=== PATIENT | female | born 1960 | race Hispanic/Latino ===

== ENCOUNTER 2021-08-23 11:36 | Outpatient (CLI) | payer OTHER, SELFPAY ==
--- NOTE | 2021-08-23 12:32 | ECG_ITS ---
Measurements Intervals [place] Rate: 59 P: 9 TN: 145 QRS: -57 QRSD: 121 T: 34 QT: 376 QTc: 375 Interpretive Statements SINUS BRADYCARDIA POSSIBLE RIGHT VENTRICULAR CONDUCTION DELAY [RSR (QR) IN V1/V2] LEFT ANTERIOR FASCICULAR BLOCK [QRS AXIS <= -45, QR IN I, RS IN II] POSSIBLE ANTERIOR MYOCARDIAL INFARCTION [30 ms Q WAVE IN V3/V4, OR R < 0.2 mV IN V4], PROBABLY OLD ABNORMAL ECG NO PREVIOUS ECG AVAILABLE FOR COMPARISON Electronically Signed On 08-23-2021 18:06:23 CDT by Ric Silvestre M.D.
[2021-08-23 13:21] LABS: Basophils Absolute Auto 0.1 K/mm3 (0.0-0.1); Basophils Percent Auto 0.8 % (0.2-1.2); Eosinophils Absolute Auto 0.3 K/mm3 (0-0.3); Eosinophils Percent Auto 3.3 % (0-4.4); Hematocrit 45.2 % (37.0-47.0); Hemoglobin 14.6 g/dL (12.0-15.0); Immature Granulocyte Absolute 0.03 K/mm3 (0.00-0.031); Immature Granulocyte Percent A 0.4 % (0-0.5); Lymphocytes Percent Auto 31.9 % (18.3-44.2); Mean Corpuscular HGB Conc 32.3 g/dl (32-36); Mean Corpuscular Hemoglobin 29.4 pg (26-34); Mean Corpuscular Volume 90.9 fl (80-100); Mean Platelet Volume 9.8 fl (7.4-10.4); Monocytes Absolute Auto 0.7 K/mm3 (0.1-0.6); Monocytes Percent Auto 9.2 % (2.6-8.5); Neutrophils Absolute Auto 4.3 K/mm3 (1.3-6.7); Neutrophils Percent Auto 54.4 % (45.5-73.1); Platelet Count Result 218 k/mm3 (150-375); Red Blood Count 4.97 M/mm3 (4.2-5.4); White Blood Count 7.8 K/mm3 (4.5-10.0)
[2021-08-23 13:34] LABS: INR 1.1; Partial Thromboplastin Time 31.5 SECONDS (22.3-36.8); Prothrombin Time 13.4 Seconds (11.1-14.7)
== END 2021-08-23 11:37 | disposition home or self-care (01) ==
LOC: ANHSURGERY 11:46
PROVIDERS: PCP Family Medicine; Visit Provider Urology
DX: Z01.818 Encounter for other preprocedural examination (principal); R94.31 Abnormal electrocardiogram [ECG] [EKG]
CPT/HCPCS: 36415; 85025; 85610; 85730; 86850; 86900; 86901; 87086; 87147; 87181; 87186; 93005

== ENCOUNTER 2021-09-05 01:52 | Day surgery (SDC) | payer OTHER, SELFPAY ==
[2021-08-23 10:54] VITALS: BP 144/80; PULSE 62; RESP 18; TEMP 36.8; O2SAT 95
[2021-08-23 11:37] VITALS: BMI 33.3
--- NOTE | 2021-08-23 11:38 | PC.NURSE ---
Report to the Outpatient Waiting Room, entrance under the green pavilion located off [facility], at time _0900_ on date _09/05/21_. OR Time: _1100_. - You and your visitor will be asked a series of questions to screen for COVID 19 for your protection. - A mask is required within the hospital. One visitor will be allowed to accompany the patient into the hospital. Patients visitor will be instructed to remain with patient at all times or leave the building. We will allow the visitor to come back to the postoperative area when patient is ready. Preoperative COVID Testing Requirements: NONE Patients may have clear liquids (water, carbonated beverages, clear teas, apple juice) until 3 hours prior to surgery (0800 AM) with a maximum of 20 ounces. - No food from midnight until time of surgery Take the following medications with a SIP of water the morning of surgery: N/A Medications to discontinue per physician ____N/A , Date to take last dose Please no make-up, nail malaysian, hairspray, perfume, deodorant, or body powder the day of surgery. No jewelry (including any body piercings) or valuables the day of surgery, leave them at home. Please take a shower or bath the night before, or the morning of, surgery with an antibacterial soap. Wear comfortable, loose fitting clothing. - Jewelry must be removed prior to entering the operating room. Rings and piercings that are not removed may be cut off. - The hospital will not accept responsibility for valuables. - Please leave all valuables, including medications, at home the day of surgery. If you are going home after surgery, a licensed oil transport driver must drive you home. - NO public transportation without another adult. - We recommend that an adult stay with you for 24 hours following discharge. - We also recommend that you do not drive, make important decision, drink alcoholic beverages, or take any drugs that were not prescribed by your health care provider for at least 24 hours after your discharge time. Follow any additional instructions given to you from DR. HINOJOSA. Telephone instructions given to __PT & SPOUSE and asked if any additional questions and then verbalized understanding. Patient advised to call surgeon office or pre surgery nurse liaison [phone] if any additional questions.
--- NOTE | 2021-09-02 10:19 | PM.IMHP ---
H&P: HPI History of Present Illness Date/Time: 09/02/21 10:19 61-year-old with vaginal vault prolapse and stress incontinence. Here for surgical correction Chief Complaint: Vaginal vault prolapse, stress incontinence Review of Systems Review of Systems: All systems reviewed & are unremarkable except as noted in HPI and below PMFSH Social History Social History Smoking status: Never smoker Second hand tobacco smoke exposure: No Alcohol intake: never Substance use: never Substance use type: does not use Spiritual care concerns: No Meds Home Medications and Allergies Home Medications Medication Instructions Recorded Confirmed Type No Home Medications 08/23/21 08/23/21 History Allergies Allergy/AdvReac Type Severity Reaction Status Date / Time No Known Allergies Allergy Verified 08/23/21 12:34 Exam Narrative: No acute distress Alert orient x3 Normal breathing Cystocele a +3 [place] at 0 Urethral mobility Assessment and Plan Assessment and plan (1) Prolapse of vaginal vault after hysterectomy: Code(s): N99.3 - Prolapse of vaginal vault after hysterectomy Status: Acute Assessment and Plan: Robotic sacral colpopexy (2) ÁNGEL (stress urinary incontinence, female): Code(s): N39.3 - Stress incontinence (female) (male) Status: Acute Assessment and Plan: Urethral sling
--- NOTE | 2021-09-02 12:59 | WPDANESEPPF ---
Anes - Initial Pre Proc Eval Procedure: Operation Date: 09/05/21 11:00 Proposed Procedures p Robotic Assisted Sacrocolpopexy - Filemon Bartlett MD Date/Time: 09/02/21 12:59 Surgeon: Filemon Bartlett MD Pre Op Diagnosis: midline cystocele Patient Data Age: 61 Gender: F Height: 1.57 m Weight: 82.8 kg Last Vital Signs Temp 98.3 F 08/23/21 10:54 Pulse 62 08/23/21 10:54 Resp 18 08/23/21 10:54 BP 144/80 H 08/23/21 10:54 Pulse Ox 95 08/23/21 10:54 Allergies Allergy/AdvReac Type Severity Reaction Status Date / Time No Known Allergies Allergy Verified 09/05/21 09:26 Home Medications Medication Instructions Recorded Confirmed Type No Home Medications 08/23/21 08/23/21 History Patient hx anesthesia problems: none Family hx anesthesia problems: none Results Review: All pre-operative results and documents have been reviewed as part of the pre-operative evaluation. [facility] Past Medical History Medical History (Updated 09/02/21 @ 12:59 by Jericho Guerrero MD) Obesity Social History Social History Smoking status: Never smoker Second hand tobacco smoke exposure: No Alcohol intake: never Substance use: never Substance use type: does not use Living arrangements: with family Spiritual care concerns: No Anes - Eval Final PreProcedure Day of Procedure 09/02/21 12:59 Patient weight: obese Heart: regular rate and rhythm Lungs: clear to auscultation Airway: Mallampati scale class III Neurological: alert and oriented Last oral intake: >/= 8 hours ASA classification: II Emergent: no Anesthetic plan: proceed Anesthesia type and monitoring: general ETT and standard monitoring Results Review: All pre-operative results and documents have been reviewed as part of the pre-operative evaluation. Informed Consent: The patient's anesthetic plan and its attendant risks and benefits were discussed with the patient/family/POA. Questions were solicited and answers provided to the satisfaction of the patient/family/POA.
[2021-09-05] VITALS (11 sets, daily range): BP systolic 110–148; BP diastolic 69–86; PULSE 64–79; RESP 10–18; TEMP 36.2–37.1; O2SAT 96–100
--- NOTE | 2021-09-05 07:13 | WPDHPUPDATE1 ---
History and Physical Update Update Date/Time: 09/05/21 07:13 History and Physical has been reviewed, including an updated exam of the patient. There are NO changes in the patient's condition. Risks, benefits, and alternatives have been discussed and questions answered. Patient agrees to proceed with procedure.
[2021-09-05] MEDS: LACTATED RINGERS 1,000 ML 30 ML IV CONT (09:57)
[2021-09-05 10:12] LABS: Alanine Aminotransferase 42 U/L (4-35); Albumin Level 4.5 g/dL (3.5-5.1); Alkaline Phosphatase 119 U/L (38-126); Anion Gap 9 mmol/L (8-16); Aspartate Amino Transferase 41 U/L (14-36); Bilirubin,Total 0.3 mg/dL (0.2-1.3); Blood Urea Nitrogen 5 mg/dL (7-17); Carbon Dioxide 24 mmol/L (22-30); Chloride 108 mmol/L (98-107); Estimated CRCL calculation 120 ml/min; Estimated Glomerular Filt Rate > 60; Glucose 127 mg/dL (65-110); Potassium 3.8 mmol/L (3.4-5.0); Sodium 141 mmol/L (137-145)
--- NOTE | 2021-09-05 10:22 | SUR.PREOP ---
0972-PT STATED THAT SHE WAS STARTED ON MACROBID FROM DR. PINEDA OFFICE. ON SUNDAY SHE BECAME ILL WITH NAUSEA AND DIARRHEA. CALLED DR. PINEDA OFFICE AND THEY INFORMED HER TO STOP THE MACROBID. HER PRIMARY MD STARTED HER ON AMOXICILLIN. PT STATED THE LAST TIME SHE VOMITED WAS ON SUNDAY AND LAST DIARRHEA WAS THIS MORNING AT 0430. REVIEWED WITH DR. PINEDA AND HE STATED PT CAN STILL HAVE HER PROCEDURE.
[2021-09-05] MEDS: ceFAZolin 2 GM/D5W 50 ML 2 GM/50 ML BAG IVPB (10:24)
[2021-09-05] MEDS: fentaNYL CITRATE INJ (*CRX) 100 MCG/2 ML VIAL 25 MCG IV PUSH ×4 (14:25→14:35)
--- NOTE | 2021-09-05 14:30 | W.PM.PROC2 ---
Procedure Note - Detailed Date of Procedure 09/05/21 Pre-op Diagnosis Vaginal vault prolapse after hysterectomy Stress incontinence Extensive intra-abdominal adhesions Post-op Diagnosis Same Procedure Performed Robotic assisted extensive lysis of adhesions Robotic assisted laparoscopic sacral colpopexy Urethral sling Cystoscopy Surgeon Filemon Bartlett MD Anesthesia General Indications This is a woman with post hysterectomy vaginal vault prolapse as well as stress urinary incontinence. She desires surgical correction. She has had a previous hysterectomy. She had a previous . She did not give this history but she has also had a abdominal hernia repair with mesh. She understands risks of bleeding, infection, diskitis, damage to surrounding organs, damage to the bowel or urinary tract, recurrence of prolapse, dyspareunia, vaginal mesh exposure, urinary tract mesh exposure, obstructive voiding requiring secondary procedure, hip and leg pain, and other perioperative intraoperative and postoperative complications. She is to proceed Findings Extensive adhesions of small bowel to anterior abdominal wall mesh and hernia tacks Description of Procedure She was correctly identified. Informed consent obtained. She is brought to the operating room. She was given general anesthesia. She was placed in the lithotomy position. She was given appropriate perioperative antibiotics. She was prepped and draped in a sterile fashion. A time-out performed. I anesthetized the skin 3 fingerbreadths cephalad to the umbilicus. I incised the skin. I located the fascia. I grasped the fascia with Michelle clamps. I incised the fascia sharply and a Kim type technique. I placed Vicryl sutures for later fascial closure. I placed a midline trocar. Under direct vision placed 2 additional trocars in the right upper quadrant and 2 additional trocars in the left upper quadrant. She was placed in steep Trendelenburg. They were extensive adhesions to the anterior abdominal wall of small bowel and omentum. Some of these adhesions were taken down sharply pure laparoscopically using no cautery. The robot was docked. I sat at the console. I examined the anterior abdominal wall. Hernia mesh was present. There also some 20-30 metal tacks. There was extensive adhesions of small bowel and omentum to these hernia tacks and to the hernia mesh. With great care I performed a an extensive robotic adhesiolysis. No cautery was used. I was able to take down all the small bowel and omentum without apparent bowel injury. This procedure took approximately 1 hour and 10 minutes to perform. There is no sign of any bowel injury. I then had the do an additional he has a lysis of left colon adhesed into the right lower quadrant. Again this was all done sharply. This took an additional 20 minutes. I asked general surgery to examine the mesh once the adhesiolysis was completed. With there blessing the hernia tacks were left in place on the anterior abdominal wall. i was informed that they did not need to be covered with any material. With the Sizer in the vagina and created a plane on the anterior and posterior vaginal wall for several cm taking great care not to injure the vagina, bladder, or rectum. Of note the bladder was wrapped around to the posterior wall of the vagina. It was quite adherent in this area. It was taken down sharply without the use of cautery. I introduced the mesh into the vagina. I sewed the anterior leaflet of mesh on the anterior vaginal wall and posterior leaf of the mesh on the posterior vaginal wall with several sutures of 2 0 [place] taking great care not to go through and through. I then opened up the peritoneum over the sacral promontory. I carried this incision into the cul-de-sac. I freed up the edges for later retroperitonealization of the mesh. I located the anterior longitudinal ligament of the sacrum. I cleaned off any fatty tissues. I
[2021-09-05] MEDS: KETOROLAC 15 MG/ML VIAL (*BKC) IV PUSH (15:03)
[2021-09-05] MEDS: HYDROmorphone HCL INJ (*CRX) 1 MG/ML SYR IV PUSH (15:06)
--- NOTE | 2021-09-05 17:13 | PC.NURSE ---
This patient, Demetria Khanna, was received from PACU on 09/05/21 at 1550. Patient/family oriented to unit policies and routines
[2021-09-05] MEDS: KCL 20 MEQ/D5/0.45% SOD CHL 1,000 ML 100 ML IV CONT (17:44)
[2021-09-05] MEDS: ACETAMINOPHEN 325 MG TABLET 650 MG PO (20:11)
[2021-09-05] MEDS: ONDANSETRON INJ 4 MG/2 ML VIAL IV PUSH (20:14)
[2021-09-05] MEDS: HYDROcodone/acetaminophen (*CRX) 5-325 MG TABLET 1 TAB PO (23:11)
[2021-09-06 00:20] VITALS: BP 110/63; PULSE 72; RESP 16; TEMP 36.9; O2SAT 96
[2021-09-06] MEDS: ACETAMINOPHEN 325 MG TABLET 650 MG PO (01:33)
[2021-09-06 03:30] VITALS: BP 112/62; PULSE 54; RESP 16; TEMP 36.8; O2SAT 95
[2021-09-06] MEDS: HYDROcodone/acetaminophen (*CRX) 5-325 MG TABLET 1 TAB PO ×2 (03:33→09:07)
[2021-09-06 08:05] VITALS: BP 107/60; PULSE 57; RESP 16; TEMP 37.2; O2SAT 97
--- NOTE | 2021-09-06 08:29 | WPDUROPN2 ---
Progress Note: A&P Assessment and Plan (1) ÁNGEL (stress urinary incontinence, female): Code(s): N39.3 - Stress incontinence (female) (male) Status: Acute (2) Prolapse of vaginal vault after hysterectomy: Code(s): N99.3 - Prolapse of vaginal vault after hysterectomy Status: Acute Assessment and Plan: Ok to discharge home. Subjective Subjective Date/Time Seen: 09/06/21 08:29 POD #1 Robotic assisted extensive lysis of adhesions Robotic assisted laparoscopic sacral colpopexy Urethral sling Cystoscopy I spoke to patient via translation from her at the bedside. She c/o post operative pain that is relieved by oral narcotics. She states her left leg feels heavy, but has full sensation and movement. She is bearing weight on that leg as well. She is urinating with a low residual s/p catheter removal and tolerating her diet. Review of Systems Cardiovascular: Cardiovascular: Denies chest pain Respiratory: Respiratory: Reports no additional respiratory complaints Gastrointestinal: Gastrointestinal: Reports abdominal pain (at incisions), Denies nausea and Denies vomiting Genitourinary: Genitourinary: Denies hematuria, Denies dysuria, Denies flank pain, Denies urinary urgency, Reports vaginal discharge and Reports other (vaginal pain) Exam Resp: Effort & Inspection: normal respiratory effort Cardio: Rate: regular rate GI: Inspection: incision (all are well approximated, no drainage present or edema, slightly tender) GI Palp: Yes Soft to palpation and Yes Tenderness to palpation present (GI) (at inicision sites) : General: Yes no CVA tenderness Neuro: Sensory Exam: Abnormal lower extremity sensory exam (left, normal sensation to touch) Extrem: General: no edema Right lower extremity: normal to inspection, full ROM and normal capillary refill; no edema Left lower extremity: normal to inspection, full ROM and normal capillary refill; no edema Objective Data Vital Signs Vital Signs: Vital Signs - 24 hr 09/05/21 10:18 09/05/21 14:02 09/05/21 14:15 Temperature 98.7 F 97.4 F L Pulse Rate 79 73 66 Respiratory Rate 16 16 14 Blood Pressure 148/84 H 126/69 122/73 Pulse Oximetry 97 98 99 09/05/21 14:30 09/05/21 14:45 09/05/21 15:00 Temperature Pulse Rate 65 72 73 Respiratory Rate 10 L 12 11 L Blood Pressure 128/86 129/79 127/84 Pulse Oximetry 99 100 100 09/05/21 15:15 09/05/21 15:30 09/05/21 15:45 Temperature Pulse Rate 65 69 68 Respiratory Rate 10 L 10 L 12 Blood Pressure 125/72 127/72 110/77 Pulse Oximetry 98 97 96 09/05/21 16:00 09/05/21 20:11 09/06/21 00:20 Temperature 97.1 F L 98.3 F 98.5 F Pulse Rate 64 72 72 Respiratory Rate 18 16 16 Blood Pressure 130/76 135/81 110/63 Pulse Oximetry 100 99 96 09/06/21 03:30 Temperature 98.2 F Pulse Rate 54 L Respiratory Rate 16 Blood Pressure 112/62 Pulse Oximetry 95 Intake/Output Intake/Output: Intake & Output 09/03/21 09/04/21 09/05/21 09/06/21 23:59 23:59 23:59 23:59 Intake Total 1050 700 Output Total 1340 1600 Balance -290 -900 Meds/Results Medications: Active Medications Generic Name Dose Route Start Last Admin Trade Name Freq PRN Reason Stop Dose Admin Acetaminophen 650 mg 09/05/21 16:03 09/06/21 01:33 Acetaminophen 325 Mg Tablet PO 650 mg Q4H PRN Administration Mild Pain (1-3) or Fever Hydrocodone Bitart/Acetaminophen 1 tab 09/05/21 16:03 09/06/21 03:33 Hydrocodone/Acetaminophen (*Crx) 5-325 Mg Tablet PO 1 tab Q4H PRN Administration Pain Rated 4-5 Cephalexin HCl 500 mg 09/06/21 17:00 Cephalexin 500 Mg Capsule PO QID [facility] Diphenhydramine HCl 25 mg 09/05/21 16:03 Diphenhydramine Hcl Inj 50 Mg/Ml Vial IV PUSH Q6H PRN Itching Docusate Sodium 100 mg 09/06/21 09:00 Docusate Sodium 100 Mg Capsule PO DAILY [facility] Enoxaparin Sodium 30 mg 09/06/21 09:00 Enoxaparin 30 Mg/0.3 Ml Syringe SUB-Q DAILY [facility]
[2021-09-06] MEDS: DOCUSATE SODIUM 100 MG CAPSULE PO (09:07)
[2021-09-06] MEDS: ENOXAPARIN 30 MG/0.3 ML SYRINGE SUB-Q (09:08)
--- NOTE | 2021-09-06 09:13 | WPDANESPN ---
Anes - Prog Note Post-Op Date/Time: 09/06/21 09:13 Cardiovascular status: normal Respiratory status: normal Airway patency: baseline Mental status: baseline Post-Op hydration status: normal Vital Signs: Last Vital Signs Temp 98.2 F 09/06/21 03:30 Pulse 54 L 09/06/21 03:30 Resp 16 09/06/21 03:30 BP 112/62 09/06/21 03:30 Pulse Ox 95 09/06/21 03:30 Pain Score (VAS): 3 I/O: Intake & Output 09/05/21 09/06/21 09/06/21 23:59 07:59 15:59 Intake Total 770 700 Output Total 950 1600 Balance -180 -900 Laboratory Tests 09/05/21 09:32 09/05/21 09:32 Sodium 141 Potassium 3.8 Chloride 108 H Carbon Dioxide 24 Anion Gap 9 BUN 5 L Creatinine 0.40 L Estim Creat Clear Calc 120 Estimated GFR > 60 Glucose 127 H Calcium 9.0 Total Bilirubin 0.3 AST 41 H ALT 42 H Alkaline Phosphatase 119 Total Protein 7.0 Albumin 4.5 Post-procedural complaints: other (pain to right leg, worse during night. slightly better this morning. likely due to positioning. pt's states Dr. Haddad nurse aware & told family related to procedure. encouraged pt to notify surgeon if worsening.) Patient Feedback: Patient satisfied with anesthetic care.
== END 2021-09-06 11:46 | disposition home or self-care (01) ==
LOC: ANHSURGERY 10:43 → ANHOB2 16:07
PROVIDERS: PCP Family Medicine; Visit Provider Urology
PROC: (CPT 57425; principal; 2021-09-05 11:00)
DX: N99.3 Prolapse of vaginal vault after hysterectomy (principal); N39.3 Stress incontinence (female) (male); N73.6 Female pelvic peritoneal adhesions (postinfective); E66.9 Obesity, unspecified; Z68.32 Body mass index [BMI] 32.0-32.9, adult
CPT/HCPCS: 57288; 57425; S2900; 36415; 80053; 85025; 85610; 85730; 86850; 86900; 86901; 87086; 87147; 87181; 87186; 93005; 99199; A9270; C1771; C1781; C9290; J0690; J1100; J1170; J1650; J1885; J2250; J2405; J2704; J3010; J3480; J7030; J7120

== ENCOUNTER 2024-04-24 00:06 | Day surgery (SDC) | payer OTHER, SELFPAY ==
[2024-04-15 09:36] VITALS: BMI 32.0
[2024-04-24 09:44] VITALS: BP 132/79; PULSE 64; RESP 18; TEMP 36; O2SAT 100; BMI 31.7
[2024-04-24] MEDS: LACTATED RINGERS 1,000 ML 150 ML IV CONT (09:55)
--- NOTE | 2024-04-24 10:08 | PM.HPGS ---
History of Present Illness History of Present Illness Consent: Risks, benefits, and alternatives have been discussed and questions answered. Patient agrees to proceed with procedure. Chief complaint: Neoplasm screening Narrative: Demetria Khanna is a 63 year old female here for screening colonoscopy, last one 10 years ago Review of Systems Review of Systems: All systems reviewed & are unremarkable except as noted in HPI and below PMFSH Past Medical History Medical History (Updated 04/24/24 @ 10:08 by Mati Rodriguez MD) Colon cancer screening Obesity Surgical History Surgical History H/O bladder repair surgery H/O colonoscopy 12/25 Social History Social History Smoking status: Never smoker Second hand tobacco smoke exposure: No Alcohol intake: never Substance use: never Substance use type: does not use Lack of Transportation: No Lack of Food: Never True Current Housing: I Have Housing Concerned About Future Housing: No Difficulty Paying Gas/Electric Bills: No Difficulty Paying for Meds: No Currently Unemployed: No Education: Grade School Difficulty w/ Childcare or Family Care: No Living arrangements: with family Gender identity (if verbalized by the patient): Female Sexual Orientation (if Verbalized by the Patient): Straight or Heterosexual Spiritual care concerns: No Agree to blood products: Yes Meds Home Medications and Allergies Home Medications ?Medication ?Instructions ?Recorded ?Confirmed ?Type psyllium seed (sugar) oral powder 1 tbsp PO DAILY #1,254 grams 06/20/22 04/24/24 Rx (Metamucil (sugar) oral powder) Allergies Allergy/AdvReac Type Severity Reaction Status Date / Time No Known Allergies Allergy Verified 04/24/24 09:40 Vital Signs Vital Signs - 24 hr 04/24/24 09:44 Temperature 96.8 F L Pulse Rate 64 Respiratory Rate 18 Blood Pressure 132/79 Pulse Oximetry 100 Oxygen Delivery Room Air Exam Const: General: comfortable and no acute distress HENMT: Face/Nose/Sinus: Normal nares present Eyes: General: appearance normal, both eyes and all related structures Neck: Neck: no JVD Resp: Auscultation: clear to auscultation bilaterally Cardio: Rate: regular rate Rhythm: regular rhythm GI: Inspection: non-distended GI Palp: Yes Soft to palpation Skin: General skin exam: normal color Neuro: General: gait normal Speech: normal speech Extrem: General: normal to inspection Psych: Mental Status: mental status grossly normal Assessment and Plan Assessment and plan (1) Colon cancer screening: Code(s): Z12.11 - Encounter for screening for malignant neoplasm of colon Status: Acute Assessment and Plan: colonoscopy
--- NOTE | 2024-04-24 10:14 | SUR.PREOP ---
Rest Room Attendant service used for pre op and anesthesia consult- ID number [id number].
--- NOTE | 2024-04-24 10:16 | P.PNAN_ITS ---
Anes - Initial Pre Proc Eval Procedure: Operation Date: 04/24/24 11:00 Proposed Procedures p Screening Colonoscopy - Mati Rodriguez MD Date/Time: 04/24/24 10:16 Surgeon: Mati Rodriguez MD Pre Op Diagnosis: Neoplasm screening Patient Data Age: 63 Gender: F Height: 1.57 m Weight: 78.8 kg Last Vital Signs Temp 96.8 F L 04/24/24 09:44 Pulse 64 04/24/24 09:44 Resp 18 04/24/24 09:44 BP 132/79 04/24/24 09:44 Pulse Ox 100 04/24/24 09:44 O2 Del Method Room Air 04/24/24 09:44 Allergies Allergy/AdvReac Type Severity Reaction Status Date / Time No Known Allergies Allergy Verified 04/24/24 09:40 Home Medications ?Medication ?Instructions ?Recorded ?Confirmed ?Type psyllium seed (sugar) oral powder 1 tbsp PO DAILY #1,254 grams 06/20/22 04/24/24 Rx (Metamucil (sugar) oral powder) Patient hx anesthesia problems: none Family hx anesthesia problems: none Results Review: All pre-operative results and documents have been reviewed as part of the pre- operative evaluation. [facility] Past Medical History Medical History (Updated 04/24/24 @ 10:08 by Mati Rodriguez MD) Colon cancer screening Obesity Surgical History Surgical History H/O bladder repair surgery H/O colonoscopy 12/25 Social History Social History Smoking status: Never smoker Second hand tobacco smoke exposure: No Alcohol intake: never Substance use: never Substance use type: does not use Lack of Transportation: No Lack of Food: Never True Current Housing: I Have Housing Concerned About Future Housing: No Difficulty Paying Gas/Electric Bills: No Difficulty Paying for Meds: No Currently Unemployed: No Education: Grade School Difficulty w/ Childcare or Family Care: No Living arrangements: with family Gender identity (if verbalized by the patient): Female Sexual Orientation (if Verbalized by the Patient): Straight or Heterosexual Spiritual care concerns: No Agree to blood products: Yes Anes - Eval Final PreProcedure Day of Procedure 04/24/24 10:16 Patient weight: normal Heart: regular rate and rhythm Lungs: clear to auscultation Airway: Mallampati scale class II Neurological: alert and oriented Last oral intake: >/= 8 hours ASA classification: II Emergent: no Anesthetic plan: proceed Anesthesia type and monitoring: general GIVS and standard monitoring Results Review: All pre-operative results and documents have been reviewed as part of the pre- operative evaluation. Informed Consent: The patient's anesthetic plan and its attendant risks and benefits were discussed with the patient/family/POA. Questions were solicited and answers provided to the satisfaction of the patient/family/POA.
[2024-04-24 10:31] VITALS: BP 84/46; PULSE 57; RESP 20; O2SAT 95
[2024-04-24 10:41] VITALS: BP 99/64; PULSE 58; RESP 18; O2SAT 97
[2024-04-24 10:51] VITALS: BP 118/73; PULSE 54; RESP 18; O2SAT 100
--- NOTE | 2024-04-24 11:01 | SUR.PHASEII ---
DISCHARGE INSTRUCTIONS GIVEN TO PT AND SPOUSE BY [employer] CASE # [id number], PT STATES NO QUESTIONS AND STATES UNDERSTANDING. PAPER COPIES GIVEN IN [place].
== END 2024-04-24 11:08 | disposition home or self-care (01) ==
PROVIDERS: PCP Family Medicine; Referring Provider Student in an Organized Health Care Education/Training Program; Visit Provider Internal Medicine Gastroenterology
PROC: 0DJD8ZZ Inspection of Lower Intestinal Tract, Via Natural or Artificial Opening Endoscopic (ICD-10-PCS; CPT 45378; principal; 2024-04-24 11:00)
DX: Z12.11 Encounter for screening for malignant neoplasm of colon (principal); K63.5 Polyp of colon; K57.30 Diverticulosis of large intestine without perforation or abscess without bleeding; K64.8 Other hemorrhoids; E66.9 Obesity, unspecified; Z68.31 Body mass index [BMI] 31.0-31.9, adult
CPT/HCPCS: 45380; 88305; J2003; J2704; J7120

== ENCOUNTER 2024-05-08 12:33 | Emergency (ER) | payer OTHER, SELFPAY ==
[2024-05-08] VITALS (8 sets, daily range): BP systolic 120–151; BP diastolic 67–81; PULSE 59–68; RESP 16–18; TEMP 36.2–36.6; O2SAT 93–100
--- NOTE | ~2024-05-08 | CT_ITS ---
CT brain wo con Ordering provider: Rufina Jewell History: 63 years Female with . headache, dizziness . Comparison: None. Technique: CT of the head without contrast. Radiation reduction technique utilized.The dose-length product was 605.33 mGy-cm. FINDINGS: BRAIN PARENCHYMA AND CSF SPACES: No midline shift, mass effect or hemorrhage. The brain parenchyma a nd CSF spaces are otherwise normal. VISUALIZED PARANASAL SINUSES: Well aerated. MASTOIDS: Well aerated. BONES: The bones appear intact. SOFT TISSUES: Visualized nasopharynx is normal. Superficial soft tissues are normal. IMPRESSION: No acute intracranial findings. Reviewed, dictated and finalized at location A. AND FARMER
--- NOTE | ~2024-05-08 | CT_ITS ---
EXAMINATION: CTA brain carotid DATE: 05/08/2024 19:00 INDICATION: vertigo, headache TECHNIQUE: Computed tomographic angiography (CTA) of the head was performed with 100 mL Omnipaque-350 intravenous contrast. Automated exposure control and iterative reconstruction technique were employe d. The dose-length product was 1122.30 mGy-cm. Maximum intensity projection and volume rendered 3D-r econstructions were created by the technologist on a separate workstation. COMPARISON: CT brain, same date. FINDINGS: CTA HEAD: No large vessel occlusion, aneurysm, high flow vascular malformation, nidus or extravasation. Slightl y hypoplastic right P1 segment with dominant flow coming from the posterior communicating artery. CTA NECK: Aortic arch and proximal great vessels: Normal arch anatomy. Right common carotid, carotid bifurcation, and internal carotid artery: Mild calcification at the bif urcation.There is 0% stenosis of the proximal right internal carotid artery relative to normal distal artery lumen diameter (NASCET criteria). Left common carotid, carotid bifurcation, and internal carotid artery: No plaque.There is 0% stenosis of the proximal left internal carotid artery relative to normal distal artery lumen diameter (NASCET criteria). Vertebral arteries: No significant plaque or stenosis. Vertebral arteries co-dominant. Other findings: Enlarged heterogeneous thyroid gland with multiple small nodules measuring up to 11 m m. Degenerative changes in the cervical spine. Retention cyst/polyp in the inferior left maxillary si nus. IMPRESSION: No large vessel intracranial occlusion, high-grade intracranial stenosis, or aneurysm. No carotid or vertebral artery occlusion, dissection, or significant stenosis. Multinodular goiter. Reviewed, dictated and finalized at location K. CH CLEANER IMPRESSION: No large vessel intracranial occlusion, high-grade intracranial stenosis, or an eurysm. No carotid or vertebral artery occlusion, dissection, or significant stenosis. Multinodular goiter.
--- NOTE | ~2024-05-08 | XR_ITS ---
EXAMINATION: XR chest 2V DATE: 05/08/2024 14:34 INDICATION: Weakness. Right back and shoulder blade pain. TECHNIQUE: PA and lateral views of the chest were obtained. COMPARISON: None FINDINGS: Linear discoid atelectasis/scarring at the lingula. No other airspace opacities, pulmonary edema, ple ural effusion or pneumothorax. The cardiomediastinal silhouette is normal. Cholecystectomy clips in r ight upper quadrant. Moderate thoracic spondylosis. IMPRESSION: 1. Linear discoid atelectasis/scarring at the lingula. Reviewed, dictated and finalized at location B. TCHER LEVELER OPERATOR
--- NOTE | 2024-05-08 14:07 | ED_ITS ---
HPI - Nausea/Vomiting/Diarrhea General Chief complaint: Nausea/Vomiting/Diarrhea <Rufina Jewell PA-C - Last Filed: 05/12/24 21:05> Stated complaint: dizzy, nausea <Rufina Jewell PA-C - Last Filed: 05/12/24 21:05> Time Seen by Provider: 05/08/24 14:07 <Rufina Jewell PA-C - Last Filed: 05/12/24 21:05> Focused HPI: This is a 63 year old female that presents to the ER for nausea and weakness. Reports she feels dizzy. Reports she had a colonoscopy on the and this has been ongoing since. Denies chest pain or shortness of breath. GENERAL: Well-appearing, well-nourished, and in no acute distress. HEAD: Normocephalic, atraumatic. CHEST: Clear to auscultation. ?No respiratory distress. HEART: Regular rate and rhythm.? NEURO: ?Alert and oriented x3. Patient screened in triage and initial orders placed.? ?Additional care and disposition to be based upon?diagnostic testing and treatment. <Rufina Jewell PA-C - Last Filed: 05/12/24 21:05> Focused HPI: This is a 63 year old female that presents to the ER for nausea and weakness. Reports she feels dizzy. Reports she had a colonoscopy on the and this has been ongoing since. Denies chest pain or shortness of breath. GENERAL: Well-appearing, well-nourished, and in no acute distress. HEAD: Normocephalic, atraumatic. CHEST: Clear to auscultation. ?No respiratory distress. HEART: Regular rate and rhythm.? NEURO: ?Alert and oriented x3. Patient screened in triage and initial orders placed.? ?Additional care and disposition to be based upon?diagnostic testing and treatment. <CRISTIANO Cardoza Last Filed: 05/09/24 02:23> Source: patient <CRISTAINO Cardoza Last Filed: 05/09/24 02:23> Mode of arrival: ambulatory <Amy Black PA-C - Last Filed: 05/09/24 02:23> Limitations: no limitations <Amy Black PA-C - Last Filed: 05/09/24 02:23> History of Present Illness HPI Narrative: Agree with above HPI. States dizziness is worse with movement, sitting upright, feels like motion sickness. Denies lightheadedness or near syncopal feeling. Does report intermittent headache and intermittent whooshing noise in L ear, nausea associated with the dizziness. Denies ear pain/tinnitus. Denies vision changes. Denies focal weakness or numbness. <Amy Black PA-C - Last Filed: 05/09/24 02:23> Related Data Allergies/Adverse reactions: Allergies Allergy/AdvReac Type Severity Reaction Status Date / Time No Known Allergies Allergy Verified 04/24/24 09:40 <Rufina Jewell PA-C - Last Filed: 05/12/24 21:05> Review of Systems 2 Review of Systems: All systems reviewed & are unremarkable except as noted in HPI. <Amy Black PA-C - Last Filed: 05/09/24 02:23> All systems reviewed & are unremarkable except as noted in HPI and below < Amy Black PA-C - Last Filed: 05/09/24 02:23> PMFSH Past Medical History Medical History: Medical History Colon cancer screening Obesity <Rufina Jewell PA-C - Last Filed: 05/12/24 21:05> Surgical History Surgical History: Surgical History H/O bladder repair surgery H/O colonoscopy 12/25 <Rufina Jewell PA-C - Last Filed: 05/12/24 21:05> Social History Social History: Social History Smoking status: Never smoker Second hand tobacco smoke exposure: No Alcohol intake: never Substance use: never Substance use type: does not use Lack of Transportation: No Lack of Food: Never True Current Housing: I Have Housing Concerned About Future Housing: No Difficulty Paying Gas/Electric Bills: No Difficulty Paying for Meds: No Currently Unemployed: No Education: Grade School Difficulty w/ Childcare or Family Care: No Living arrangements: with family Gender identity (if verbalized by the patient): Female Sexual Orientation (if Verbalized by the Patient): Straight or Heterosexual Spiritual care concerns: No Agree to blood products: Yes <CRISTIANO Rivera Last Filed: 05/12/24 21:05> Exam 2 Narrative: GENERAL: Well appearing, obese with BMI of 30.9, non-toxic, in no acute distress. HEAD: Normocephalic, atraumatic. EYES: PERRL/EOMI, conjunctivae clear bilaterally. No nystagmus. NECK: Supple. No meningeal signs. RESPIRATORY: Airway patent, respirations nonlabored. Clear to auscultation bilaterally, no rales, rhonchi, wheezing. CARDIOVASCULAR: Regular rate and rhythm without murmurs, rubs, or gallops. Peripheral pulses 2+ and equal bilaterally. ABDOMINAL: Soft, nontender, nondistended. Normoactive BS. MUSCULOSKELETAL: Moves all extremities. No gross deformities. SKIN: Warm, dry, normal color. No rashes. NEURO: A&O X3. Speech clear. Follows commands. CN II-XII intact. Sensation grossly intact. Steady gait. No ataxic movements. Strength 5/5 in upper and lower extremities bilaterally. No pronator drift. Equal speech language pathology assistant strength bilaterally. PSYCHIATRIC: Appropriate mood and affect. Normal interaction. <CRISTIANO Cardoza Last Filed: 05/09/24 02:23> Course Vital Signs Vital signs: Vital Signs Temperature 97.1 F L 05/08/24 12:43 Pulse Rate 68 05/08/24 12:43 Respiratory Rate 18 05/08/24 12:43 Blood Pressure 144/75 H 05/08/24 12:43 Pulse Oximetry 98 05/08/24 12:43 Temperature 98 F 05/08/24 21:12 Pulse Rate 62 05/08/24 21:12 Respiratory Rate 17 05/08/24 21:12 Blood Pressure 137/67 05/08/24 21:12 Pulse Oximetry 99 05/08/24 21:12 Oxygen Delivery Room Air 05/08/24 16:59 <CRISTIANO Rivera Last Filed: 05/12/24 21:05> Vital Signs Temperature 97.1 F L 05/08/24 12:43 Pulse Rate 68 05/08/24 12:43 Respiratory Rate 18 05/08/24 12:43 Blood Pressure 144/75 H 05/08/24 12:43 Pulse Oximetry 98 05/08/24 12:43 Temperature 98 F 05/08/24 21:12 Pulse Rate 62 05/08/24 21:12 Respiratory Rate 17 05/08/24 21:12 Blood Pressure 137/67 05/08/24 21:12 Pulse Oximetry 99 05/08/24 21:12 Oxygen Delivery Room Air 05/08/24 16:59 <CRISTIANO Cardoza Last Filed: 05/09/24 02:23> MDM - Nausea/Vomiting/Diarrhea MDM Narrative Medical decision making narrative: Patient presented to ED with dizziness/vertigo sensation. Intermittent headaches, nausea. Vital signs are stable upon arrival. No significant orthostatic hypotension. Patient is in no acute distress. She is neurologically intact upon my evaluation. No focal deficits appreciated on exam. Dizziness is positional and elicited with sitting upright in ED bed. EKG is without ischemic changes. CT brain and CTA brain/carotids are unremarkable. Chest x-ray is clear. Basic laboratory studies are unremarkable. Urine without signs of infection. Patient given fluids, Zofran, meclizine, of small dose of Valium. On re- evaluation, she is feeling improved. Was able to ambulate to and from the bathroom without issue. States dizziness is improved. Discussed overall reassuring workup, high likelihood of BPPV. Sxs have been ongoing for numerous days. Less suspicious for central cause of vertigo given reassuring w/u and neurologic exam. Feel patient is safe for discharge home with meclizine, close outpatient follow-up. Patient is in agreement with this plan. She would prefer to go home. She feels comfortable going home. Discussed strict return precautions, signs and symptoms of CVA. Patient voiced understanding. Family in agreement with plan. Discharged in stable condition. Ambulatory with steady gait. <CRISTIANO Cardoza Last Filed: 05/09/24 02:23> Medical Records Attestation: I reviewed the patient's medical records. <Amy Black PA-C - Last Filed: 05/09/24 02:23> Lab Data Attestation: I reviewed the patient's lab results. <Amy Black PA-C - Last Filed: 05/09/24 02:23> Result diagrams: 05/08/24 14:39 05/08/24 14:39 <Rufina Jewell PA-C - Last Filed: 05/12/24 21:05> Labs: Lab Results 05/08/24 05/08/24 Range/Units 14:39 16:59 WBC 7.2 (4.5-10.0) K/mm3 RBC 5.08 (4.2-5.4) M/mm3 Hgb 15.2 H (12.0-15.0) g/dL Hct 45.3 (37.0-47.0) % MCV 89.2 (80-100) fl MCH 29.9 (26-34) pg MCHC 33.6 (32-36) g/dl RDW 12.7 (11.5-14.5) % Plt Count 215 (150-375) k/mm3 MPV 9.9 (7.4-10.4) fl Immature Gran % (Auto) 0.4 (0-0.5) % Neut % (Auto) 58.7 (45.5-73.1) % Lymph % (Auto) 30.2 (18.3-44.2) % Taylor % (Auto) 7.8 (2.6-8.5) % Eos % (Auto) 2.2 (0-4.4) % Baso % (Auto) 0.7 (0.2-1.2) % Lymph # (Auto) 2.16 (0.9-3.2) K/mm3 Taylor # (Auto) 0.6 (0.1-0.6) K/mm3 Eos # (Auto) 0.2 (0-0.3) K/mm3 Baso # (Auto) 0.1 (0.0-0.1) K/mm3 Abs Immat Gran (auto) 0.03 (0.00-0.031) K/mm3 Absolute Neuts (auto) 4.2 (1.3-6.7) K/mm3 Absolute Nucleated RBC 0.000 (0.0-0.012) K/mm3 Nucleated RBC % 0.0 (0.0-0.2) % Sodium 140 (137-145) mmol/L Potassium 3.9 (3.4-5.0) mmol/L Chloride 109 H (98-107) mmol/L Carbon Dioxide 30 (22-30) mmol/L Anion Gap 1 L (4-12) mmol/L BUN 9 (7-17) mg/dL Creatinine 0.50 L (0.7-1.0) mg/dL Estim Creat Clear Calc 96 ml/min Estimated GFR > 60 (59 - ) Glucose 110 (65-110) mg/dL Calcium 9.6 (8.4-10.2) mg/dL Total Bilirubin 0.4 (0.2-1.3) mg/dL AST 25 (14-36) U/L ALT 20 (6-35) U/L Alkaline Phosphatase 91 (38-126) U/L Total Protein 8.0 (6.3-8.2) g/dL Albumin 4.4 (3.5-5.1) g/dL Lipase 110 (23-300) U/L Urine Color Yellow (Yellow) Urine Appearance Clear (Clear) Urine pH 7.5 (5.0-9.0) Ur Specific [place] 1.007 (1.001-1.035) Urine Protein Negative (Negative) mg/dL Urine Glucose (UA) Negative (Negative) mg/dL Urine Ketones Negative (Negative) mg/dL Ur Blood (Man) Negative (Negative) Urine Nitrate Negative (Negative) Urine Bilirubin Negative (Negative) Urine Urobilinogen 0.2 (<2.0) mg/dL Add Ur Microanalysis Reviewed Leukocyte Esterase Rfl 1+ H (Negative) AZUL/UL Urine RBC 0-2 (0-2) /hpf Urine WBC 0-5 (0-3) /hpf Ur Squamous Epith Cells None seen (Few) /hpf Urine Bacteria None seen /hpf Urine Casts 0-2 <Rufina Jewell PA-C - Last Filed: 05/12/24 21:05> Lab Results 05/08/24 05/08/24 Range/Units 14:39 16:59 WBC 7.2 (4.5-10.0) K/mm3 RBC 5.08 (4.2-5.4) M/mm3 Hgb 15.2 H (12.0-15.0) g/dL Hct 45.3 (37.0-47.0) % MCV 89.2 (80-100) fl MCH 29.9 (26-34) pg MCHC 33.6 (32-36) g/dl RDW 12.7 (11.5-14.5) % Plt Count 215 (150-375) k/mm3 MPV 9.9 (7.4-10.4) fl Immature Gran % (Auto) 0.4 (0-0.5) % Neut % (Auto) 58.7 (45.5-73.1) % Lymph % (Auto) 30.2 (18.3-44.2) % Taylor % (Auto) 7.8 (2.6-8.5) % Eos % (Auto) 2.2 (0-4.4) % Baso % (Auto) 0.7 (0.2-1.2) % Lymph # (Auto) 2.16 (0.9-3.2) K/mm3 Taylor # (Auto) 0.6 (0.1-0.6) K/mm3 Eos # (Auto) 0.2 (0-0.3) K/mm3 Baso # (Auto) 0.1 (0.0-0.1) K/mm3 Abs Immat Gran (auto) 0.03 (0.00-0.031) K/mm3 Absolute Neuts (auto) 4.2 (1.3-6.7) K/mm3 Absolute Nucleated RBC 0.000 (0.0-0.012) K/mm3 Nucleated RBC % 0.0 (0.0-0.2) % Sodium 140 (137-145) mmol/L Potassium 3.9 (3.4-5.0) mmol/L Chloride 109 H (98-107) mmol/L Carbon Dioxide 30 (22-30) mmol/L Anion Gap 1 L (4-12) mmol/L BUN 9 (7-17) mg/dL Creatinine 0.50 L (0.7-1.0) mg/dL Estim Creat Clear Calc 96 ml/min Estimated GFR > 60 (59 - ) Glucose 110 (65-110) mg/dL Calcium 9.6 (8.4-10.2) mg/dL Total Bilirubin 0.4 (0.2-1.3) mg/dL AST 25 (14-36) U/L ALT 20 (6-35) U/L Alkaline Phosphatase 91 (38-126) U/L Total Protein 8.0 (6.3-8.2) g/dL Albumin 4.4 (3.5-5.1) g/dL Lipase 110 (23-300) U/L Urine Color Yellow (Yellow) Urine Appearance Clear (Clear) Urine pH 7.5 (5.0-9.0) Ur Specific [place] 1.007 (1.001-1.035) Urine Protein Negative (Negative) mg/dL Urine Glucose (UA) Negative (Negative) mg/dL Urine Ketones Negative (Negative) mg/dL Ur Blood (Man) Negative (Negative) Urine Nitrate Negative (Negative) Urine Bilirubin Negative (Negative) Urine Urobilinogen 0.2 (<2.0) mg/dL Add Ur Microanalysis Reviewed Leukocyte Esterase Rfl 1+ H (Negative) AZUL/UL Urine RBC 0-2 (0-2) /hpf Urine WBC 0-5 (0-3) /hpf Ur Squamous Epith Cells None seen (Few) /hpf Urine Bacteria None seen /hpf Urine Casts 0-2 <CRISTIANO Cardoza Last Filed: 05/09/24 02:23> Imaging Data Attestation: I personally reviewed and interpreted this imaging study as follows: < CRISTIANO Cardoza Last Filed: 05/09/24 02:23> Radiologist's impression: ITS Impressions Head CT 05/08/24 14:30 IMPRESSION: No acute intracranial findings. Chest X-Ray 05/08/24 14:35 IMPRESSION: 1. Linear discoid atelectasis/scarring at the lingula. Head/Neck CTA 05/08/24 19:07 IMPRESSION: No large vessel intracranial occlusion, high-grade intracranial stenosis, or aneurysm. No carotid or vertebral artery occlusion, dissection, or significant stenosis. Multinodular goiter. <CRISTIANO Cardoza Last Filed: 05/09/24 02:23> ECG Data EKG #1: Attestation: I personally reviewed and interpreted this ECG as follows: <CRISTIANO Cardoza Last Filed: 05/09/24 02:23> ECG completion date: 05/08/24 <CRISTIANO Cardoza Last Filed: 05/09/24 02:23> ECG completion time: 14:36 <CRISTIANO Cardoza Last Filed: 05/09/24 02:23> EKG Interpretation: normal rate (67), sinus rhythm and non-specific ST changes <CRISTIANO Cardoza Last Filed: 05/09/24 02:23> Critical Care Time Critical Care Time Critical Care Time: No <CRISTIANO Rivera Last Filed: 05/12/24 21:05> Discharge Plan Discharge Clinical Impression: Vertigo <CRISTIANO Rivera Last Filed: 05/12/24 21:05> Patient Disposition: Home, Self-Care <CRISTIANO Rivera Last Filed: 05/12/24 21:05> Condition: Stable <CRISTIANO Rivera Last Filed: 05/12/24 21:05> Instructions: Antibiotic Form, Vertigo (ED), Benign Paroxysmal Positional Vertigo (ED) <CRISTIANO Rivera Last Filed: 05/12/24 21:05> Additional Instructions: Utilize meclizine as needed for further dizziness. Utilize Zofran as needed for further nausea. You may use Tylenol as needed for headaches. Stay well hydrated. Avoid abrupt position changes as this could cause you to become dizzy. Follow-up closely with your primary care doctor for further evaluation. Return to the ED if you experience worsening or severe dizziness, passing out, unable to keep down food or drink, fevers, vision changes, numbness or weakness of arm or leg, severe headaches, or any other symptoms of concern. <CRISTIANO Rivera Last Filed: 05/12/24 21:05> Patient Language: Eritrean <CRISTIANO Rivera Last Filed: 05/12/24 21:05> Prescriptions: New meclizine 25 mg tablet 25 mg PO TID PRN (Reason: dizziness) Qty: 15 0RF ondansetron 4 mg tablet,disintegrating 4 mg PO Q8H PRN (Reason: nausea and vomiting) Qty: 15 0RF No Action Metamucil (sugar) Powder 1 tbsp PO DAILY Qty: 1254 0RF <Rufina Jewell PA-C - Last Filed: 05/12/24 21:05> Follow-up/Referrals: Azeb Lucas MD [Primary Care Provider] - <Rufina Jewell PA-C - Last Filed: 05/12/24 21:05> Time of Disposition: 21:06 <Rufina Jewell PA-C - Last Filed: 05/12/24 21:05> 21:06 <Amy Black PA-C - Last Filed: 05/09/24 02:23>
--- NOTE | 2024-05-08 14:08 | ECG_ITS ---
Test Date: 2024-05-08 14:36:29 Measurements Intervals [place] Rate: 67 P: 40 CO: 160 QRS: -71 QRSD: 118 T: 56 QT: 321 QTc: 341 Interpretive Statements SINUS RHYTHM LEFT ANTERIOR FASCICULAR BLOCK [QRS AXIS <= -45, QR IN I, RS IN II] POSSIBLE ANTERIOR MYOCARDIAL INFARCTION , PROBABLY OLD [30 ms Q WAVE IN V3/V4, OR R < 0.2 mV IN V4] ABNORMAL ECG No previous ECG available for comparison Electronically Signed On 05-09-2024 16:54:52 FINANCIAL PLANNING ADVISOR by Ric Silvestre M.D.
[2024-05-08] MEDS: ONDANSETRON HCL ODT 4 MG TABLET PO (14:39)
[2024-05-08] MEDS: MECLIZINE HCL 25 MG TABLET PO (14:39)
[2024-05-08 14:52] LABS: Basophils Absolute Auto 0.1 K/mm3 (0.0-0.1); Basophils Percent Auto 0.7 % (0.2-1.2); Eosinophils Absolute Auto 0.2 K/mm3 (0-0.3); Eosinophils Percent Auto 2.2 % (0-4.4); Hematocrit 45.3 % (37.0-47.0); Hemoglobin 15.2 g/dL (12.0-15.0); Immature Granulocyte Absolute 0.03 K/mm3 (0.00-0.031); Immature Granulocyte Percent A 0.4 % (0-0.5); Lymphocytes Absolute Auto 2.16 K/mm3 (0.9-3.2); Lymphocytes Percent Auto 30.2 % (18.3-44.2); Mean Corpuscular HGB Conc 33.6 g/dl (32-36); Mean Corpuscular Hemoglobin 29.9 pg (26-34); Mean Corpuscular Volume 89.2 fl (80-100); Mean Platelet Volume 9.9 fl (7.4-10.4); Monocytes Absolute Auto 0.6 K/mm3 (0.1-0.6); Monocytes Percent Auto 7.8 % (2.6-8.5); Neutrophils Absolute Auto 4.2 K/mm3 (1.3-6.7); Neutrophils Percent Auto 58.7 % (45.5-73.1); Platelet Count Result 215 k/mm3 (150-375); Red Blood Count 5.08 M/mm3 (4.2-5.4); Red Cell Distribution Width 12.7 % (11.5-14.5); White Blood Count 7.2 K/mm3 (4.5-10.0)
[2024-05-08 15:05] LABS: Alanine Aminotransferase 20 U/L (6-35); Albumin Level 4.4 g/dL (3.5-5.1); Alkaline Phosphatase 91 U/L (38-126); Anion Gap 1 mmol/L (4-12); Aspartate Amino Transferase 25 U/L (14-36); Bilirubin,Total 0.4 mg/dL (0.2-1.3); Blood Urea Nitrogen 9 mg/dL (7-17); Calcium 9.6 mg/dL (8.4-10.2); Carbon Dioxide 30 mmol/L (22-30); Chloride 109 mmol/L (98-107); Estimated CRCL calculation 96 ml/min; Estimated Glomerular Filt Rate > 60; Glucose 110 mg/dL (65-110); Lipase 110 U/L (23-300); Potassium 3.9 mmol/L (3.4-5.0); Sodium 140 mmol/L (137-145)
[2024-05-08 17:39] LABS: Add Urine Microscopic? YES; Appearance Urine Clear (Clear); Bacteria Urine None Seen /hpf; Bilirubin Urine Negative (Negative); Blood Urine Negative (Negative); Color Urine Yellow (Yellow); Glucose Urine UA Negative (Negative); Ketones Urine Negative (Negative); Leukocyte Esterase Ur 1+ LEU/UL (Negative); Need Manual Microscopic Reviewed; Nitrate Urine Negative (Negative); Non Pathogenic Casts 0-2; Protein Urine Negative (Negative); RBC Urine 0-2 /hpf (0-2); Specific Grav Ur 1.007 (1.001-1.035); Squamous Epithelial Cell Urine None Seen /hpf (Few); Urobilinogen Urine 0.2 mg/dL (<2.0); WBC Urine 0-5 /hpf (0-3); pH Urine 7.5 (5.0-9.0)
[2024-05-08] MEDS: SODIUM CHLORIDE 0.9% IV 1,000 ML 999 ML IV CONT (18:31)
[2024-05-08] MEDS: diazePAM INJ (*CRX) 10 MG/2 ML SYRINGE 2 MG IV PUSH (18:31)
== END 2024-05-08 21:13 | disposition home or self-care (01) ==
PROVIDERS: Physician Assistant; Emergency Provider Physician Assistant; PCP Family Medicine
DX: R42 Dizziness and giddiness (principal); R94.31 Abnormal electrocardiogram [ECG] [EKG]
CPT/HCPCS: 36415; 70450; 70496; 70498; 71046; 80053; 81001; 83690; 85025; 87086; 93005; 96361; 96374; 99284; A9270; J3360; J7030; Q9967

== ENCOUNTER 2025-04-23 08:15 | Outpatient (CLI) | payer OTHER, SELFPAY ==
--- NOTE | ~2025-04-23 | NM_ITS ---
EXAMINATION: NM thyroid scan w uptake DATE: 04/24/2025 10:26 INDICATION: Nontoxic multinodular goiter COMPARISON: None. TECHNIQUE: 424 microcuries I-123 was administered orally in capsule form. Scintigraphic images of the thyroid gland were obtained at 24 hours. Thyroid uptake was calculated by the technologist. FINDINGS: The thyroid uptake is 38.2% (normal 10-30%), with the right lobe measuring 22.3% uptake and the left 16.8%. There is no focal area of decreased or increased activity to suggest hypofunctioning or hyperfunctioning nodule. IMPRESSION: 1. Diffusely increased 24-hour thyroid iodine uptake with normal scintigraphy consistent with Graves' disease. Reviewed, dictated and finalized at location A. IGERATION BRAZER/SOLDERER
== END 2025-04-23 08:16 | disposition home or self-care (01) ==
PROVIDERS: PCP Family Medicine Adolescent Medicine; Visit Provider Internal Medicine
DX: E04.2 Nontoxic multinodular goiter (principal); R79.89 Other specified abnormal findings of blood chemistry
CPT/HCPCS: 78014; A9516

== ENCOUNTER 2025-04-24 08:10 | Outpatient (CLI) | payer OTHER, SELFPAY ==
--- NOTE | ~2025-04-24 | US_ITS ---
EXAMINATION: US thyroid DATE: 04/24/2025 08:52 INDICATION: Nodules TECHNIQUE: Multiple ultrasound images of the thyroid were obtained. COMPARISON: None. FINDINGS: The right thyroid lobe measures 4.4 x 2.7 x 1.7 cm. The left thyroid lobe measures 3.5 x 2.3 x 6.2 cm. The thyroid is moderately heterogeneous in echotexture throughout. The thyroid also appears mildly hyperemic throughout. A right-sided somewhat ill-defined nodule present measures 2.7 x 2.5 x 1.7 cm. With TR 2 features. IMPRESSION: 1. Mildly enlarged hyperemic thyroid which could be associated with thyroiditis. 2. 2.7 cm right lobe thyroid nodule. Correlation with follow-up thyroid ultrasound recommended in 12 months. Reviewed, dictated and finalized at location A. STRY AID IMPRESSION: 1. Mildly enlarged hyperemic thyroid which could be associated with thyroiditis . 2. 2.7 cm right lobe thyroid nodule. Correlation with follow-up thyroid ultraso und recommended in 12 months.
== END 2025-04-24 08:11 | disposition home or self-care (01) ==
PROVIDERS: PCP Family Medicine Adolescent Medicine; Visit Provider Internal Medicine
DX: E04.1 Nontoxic single thyroid nodule (principal); R79.89 Other specified abnormal findings of blood chemistry
CPT/HCPCS: 76536